=== PATIENT | female | born 1985 | race Hispanic/Latino ===

== ENCOUNTER 2018-02-10 22:51 | Emergency (ER) | payer OTHER ==
--- NOTE | 2018-02-11 00:41 | Emergency Department Report ---
Abscess Boil HPI - HPI Chief Complaint: Skin/Abscess/Foreign Body Stated Complaint: INFECTION ON RT SIDE FACE Time Seen by Provider: 02/11/18 00:36 Duration: 5 Days Location: Head History: Yes Pain, Yes Purulent Drainage, No Fever, No Numbness, No Foreign Body , No Previous History, No Insect Bite HPI: Patient presents for abscess to right cheek is a recurrent condition less so on centimeter Home Medications: Previous Rx's Medication Instructions Recorded Last Taken Type Cephalexin [Keflex] 500 mg PO TID #30 capsule 02/11/18 Unknown Rx Ibuprofen 800 mg PO TID PRN #30 tablet 02/11/18 Unknown Rx Allergies/Adverse Reactions: Allergies Allergy/AdvReac Type Severity Reaction Status Date / Time divalproex sodium Allergy Hives Verified 02/10/18 23:05 [From Depakote] methylphenidate Allergy Hives Verified 02/10/18 23:05 [From Ritalin] venlafaxine [From Effexor] Allergy Hives Verified 02/10/18 23:05 ED Review of Systems ROS: Stated complaint: INFECTION ON RT SIDE FACE Other details as noted in HPI Constitutional: denies: chills, fever Eyes: denies: eye pain, eye discharge, vision change ENT: denies: ear pain, throat pain Respiratory: denies: cough, shortness of breath, wheezing Cardiovascular: denies: chest pain, palpitations Endocrine: no symptoms reported Gastrointestinal: denies: abdominal pain, nausea, diarrhea Genitourinary: denies: urgency, dysuria, discharge Musculoskeletal: denies: back pain, joint swelling, arthralgia Skin: lesions (right cheek abscess ) Neurological: denies: headache, weakness, paresthesias Psychiatric: denies: anxiety, depression Hematological/Lymphatic: denies: easy bleeding, easy bruising ED Past Medical Hx - Past Medical History Previous Medical History?: Yes Hx Diabetes: Yes (boarderline) - Surgical History Past Surgical History?: Yes Additional Surgical History: left arm, breast augmentation, abd - Social History Smoking Status: Current Every Day Smoker Substance Use Type: Alcohol - Medications Home Medications: Home Medications Medication Instructions Recorded Confirmed Last Taken Type Cephalexin [Keflex] 500 mg PO TID #30 capsule 02/11/18 Unknown Rx Ibuprofen 800 mg PO TID PRN #30 tablet 02/11/18 Unknown Rx ED Abscess Boil Physical Exam - Exam General: Vital signs noted. No distress. Alert and acting appropriately. Size: 1 cm Exam: Yes Tenderness, Yes Fluctuance, No Surrounding Cellulites/Erythema, No Lymphangitis, No Crepitation, No Heart Murmur, No Normal Neurologic Exam, No Normal Circulation Exam: Is a right cheek abscess less than 1 cm mild fluctuance patient's over express pus bleeding is controlled There is minimal erythema I & D Note - I & D Note I & D Note: Patient manually expressed pus not sufficient remaining abscess for I&D procedure Critical care attestation.: If time is entered above; I have spent that time in minutes in the direct care of this critically ill patient, excluding procedure time. ED Medical Decision Making - Medical Decision Making abscess face ED Disposition Clinical Impression: Abscess Disposition: TO HOME OR SELFCARE Is pt being admited?: No Does the pt Need Aspirin: No Condition: Good Instructions: Abscess (ED) Prescriptions: Cephalexin [Keflex] 500 mg PO TID #30 capsule Ibuprofen 800 mg PO TID PRN #30 tablet PRN Reason: pain Referrals: PRIMARY CARE, [Primary Care Provider] - 3-5 Days Forms: Work/School Release Form(ED) Time of Disposition: 00:41
[2018-02-11 00:48] VITALS: BP 132/74
== END 2018-02-11 00:46 | disposition home or self-care (01) ==
LOC: ED 22:51
DX: L02.01 Cutaneous abscess of face (principal); E11.9 Type 2 diabetes mellitus without complications; F17.200 Nicotine dependence, unspecified, uncomplicated; Z88.1 Allergy status to other antibiotic agents; Z88.8 Allergy status to other drugs, medicaments and biological substances
CPT/HCPCS: 99282

== ENCOUNTER 2021-07-23 16:29 | Emergency (ER) | payer SELFPAY ==
[2021-07-23] MEDS ORDERED: NEOMY 3.5 MG/BACIT 400 UNITS/POLY B 5000 UNITS/GM OINT PACKET TP ONE (16:59)
[2021-07-23] MEDS ORDERED: LIDOCAINE (1%) 10 MG/1 ML VIAL 20 ML MDV INFILTRATI ONE (16:59)
--- NOTE | 2021-07-23 16:59 | Event Note ---
ED Screening Note ED Screening Note: lac to 2 fingers knife was cutting wood tdap utd This initial assessment/diagnostic orders/clinical plan/treatment(s) is/are subject to change based on patients health status, clinical progression and re- assessment by fellow clinical providers in the ED. Further treatment and workup at subsequent clinical providers discretion. Patient/guardian urged not to elope from the ED as their condition may be serious if not clinically assessed and managed. Initial orders include: wound eval/repair
[2021-07-23 17:05] VITALS: BP 128/81
[2021-07-23] MEDS ORDERED: SODIUM CHLORIDE 0.9% IRR 500 ML BOTTLE IR SCH (17:30)
--- NOTE | 2021-07-23 18:01 | Emergency Department Report ---
- General Chief Complaint: Laceration/Recheck/Suture Stated Complaint: LAC ON TWO FINGERS Time Seen by Provider: 07/23/21 17:35 Source: patient Mode of arrival: Ambulatory Limitations: No Limitations - History of Present Illness Initial Comments: 36-year-old female presents to the ER today with laceration to her left middle finger on the palm side of her hand and a small laceration to her left index finger at the distal tip. Patient reports trying to cut the glue from a picture frame with a kitchen knife. Patient reports her tetanus shot is up-to-date. Patient reports no acute symptoms. Range of motion is intact in all fingers of her left hand. Patient reports applying superglue to the inside of her left middle finger laceration to help close it because they also did an [employer] War [employer]. Patient also reports being possibly 3 to 4 weeks with no acute symptoms. Location: other (left middle and index fingers) Extremity Location: Left: Hand (middle and index finger) Place: home Patient Tetanus UTD: Yes Context: accidental Treatments Prior to Arrival: bandage - Related Data Previous Rx's Medication Instructions Recorded Last Taken Type Ibuprofen [Ibuprofen 800] 800 mg PO TID PRN #30 tablet 02/11/18 Unknown Rx cephALEXin [Keflex] 500 mg PO TID #30 capsule 02/11/18 Unknown Rx Allergies Allergy/AdvReac Type Severity Reaction Status Date / Time divalproex sodium Allergy Hives Verified 02/10/18 23:05 [From Depakote] methylphenidate Allergy Hives Verified 02/10/18 23:05 [From Ritalin] venlafaxine [From Effexor] Allergy Hives Verified 02/10/18 23:05 ED Review of Systems ROS: Stated complaint: LAC ON TWO FINGERS Other details as noted in HPI Constitutional: denies: chills, fever Eyes: denies: eye pain, eye discharge, vision change ENT: denies: ear pain, throat pain Respiratory: denies: cough, shortness of breath, wheezing Cardiovascular: denies: chest pain, palpitations Endocrine: no symptoms reported Gastrointestinal: denies: abdominal pain, nausea, diarrhea Genitourinary: denies: urgency, dysuria, discharge Musculoskeletal: denies: back pain, joint swelling, arthralgia Skin: other (lac to left middle and index finger). denies: rash, lesions Neurological: denies: headache, weakness, paresthesias Psychiatric: denies: anxiety, depression Hematological/Lymphatic: denies: easy bleeding, easy bruising ED Past Medical Hx - Past Medical History Previous Medical History?: Yes Hx Diabetes: Yes (boarderline) - Surgical History Additional Surgical History: left arm, breast augmentation, abd - Social History Smoking Status: Current Every Day Smoker Substance Use Type: Alcohol - Medications Home Medications: Home Medications Medication Instructions Recorded Confirmed Last Taken Type Ibuprofen [Ibuprofen 800] 800 mg PO TID PRN #30 tablet 02/11/18 Unknown Rx cephALEXin [Keflex] 500 mg PO TID #30 capsule 02/11/18 Unknown Rx ED Physical Exam - General Limitations: No Limitations General appearance: alert, in no apparent distress - Head Head exam: Present: atraumatic, normocephalic - Eye Eye exam: Present: normal appearance - ENT ENT exam: Present: mucous membranes moist - Neck Neck exam: Present: normal inspection - Respiratory Respiratory exam: Present: normal lung sounds bilaterally. Absent: respiratory distress - Cardiovascular Cardiovascular Exam: Present: regular rate, normal rhythm. Absent: systolic murmur, diastolic murmur, rubs, gallop - GI/Abdominal GI/Abdominal exam: Present: soft, normal bowel sounds - Extremities Exam Extremities exam: Present: normal inspection - Back Exam Back exam: Present: normal inspection - Neurological Exam Neurological exam: Present: alert, oriented X3 - Psychiatric Psychiatric exam: Present: normal affect, normal mood - Skin Skin exam: Present: warm, dry, normal color, other (1cm lac to left middle finger and less than 0.5 cm lac to left index finger. ). Absent: rash ED Course Vital Signs 07/23/21 07/23/21 07/23/21 17:01 18:17 18:34 Temperature 98.5 F Pulse Rate 111 H 98 H Respiratory 16 16 Rate Blood Pressure 128/81 [Left] O2 Sat by Pulse 99 Oximetry - Laceration /Wound Repair Left middle finger Wound Location: upper extremity (left middle finger tip ) Wound Length (cm): 1 Wound's Depth, Shape: superficial Wound Explored: clean Irrigated w/ Saline (ccs): 100 Wound Repaired With: Dermabond Left Finger Wound Location: upper extremity (left index finger ) Wound's Depth, Shape: superficial Wound Explored: clean Irrigated w/ Saline (ccs): 100 Wound Repaired With: Dermabond ED Medical Decision Making - Medical Decision Making Left middle finger lack with irrigated with normal saline cleaned, laceration was repaired with Dermabond per patient's request. Left index finger lack was irrigated with normal saline cleaned, laceration repaired with Dermabond per patient's request. Range of motion intact in both left index and middle finger, no concerns for tendon or vascular injury, neurovascular function intact. Sensation is still present in both fingers. Patient is stable for discharge. Patient informed that Dermabond will fall off as it is ready. Patient informed not to apply any topical creams about Dermabond. Patient given information and instructions to watch out for signs and symptoms of infection. Patient agrees with plan of care and verbalizes understanding. Critical care attestation.: If time is entered above; I have spent that time in minutes in the direct care of this critically ill patient, excluding procedure time. ED Disposition Clinical Impression: Laceration of left middle finger, Laceration of left index finger Disposition: HOME / SELF CARE / HOMELESS Is pt being admited?: No Condition: Stable Instructions: Laceration Care, Adult, Sutures, Aspen, or Adhesive Wound Closure, [id number]
[2021-07-23] MEDS: ACETAMINOPHEN 325 MG TAB PO ONE (18:17)
== END 2021-07-23 18:35 | disposition home or self-care (01) ==
LOC: ED 16:29
DX: S61.213A Laceration without foreign body of left middle finger without damage to nail, initial encounter (principal); S61.211A Laceration without foreign body of left index finger without damage to nail, initial encounter; F10.20 Alcohol dependence, uncomplicated; F17.200 Nicotine dependence, unspecified, uncomplicated; X58.XXXA Exposure to other specified factors, initial encounter; Y93.89 Activity, other specified; Y92.89 Other specified places as the place of occurrence of the external cause; Y99.8 Other external cause status
CPT/HCPCS: 12001; 99282; J3490